=== PATIENT | male | born 1985 | race African-American/Black ===

== ENCOUNTER 2016-09-29 13:41 | Inpatient (IN) | payer OTHER ==
--- NOTE | 2016-09-29 14:19 | EDPHY ---
H & P Smoking Status: Never smoked Time Seen by Provider: 09/29/16 13:44 HPI/ROS: Chief complaint. People are following me HPI. Patient is a 31-year-old male who who presented to the police department today with complaint of people following him. He tells me this began several weeks ago and he was followed while he was in [place] and a stranger came up to him on the street and told him that the august since were interested in him and following him and wanted him to join the august since. The last several days the patient feels that he is being followed and apparently ended up yesterday in [place] and went to the police department after throwing away his cell phone. The [place] Police sent the patient to [facility] is the patient is a . They referred him back to [place]. Today again he was being followed and went to the police department here in [place] requesting protection. He was referred also to mental health and arrives in the emergency department with police and mental health. The patient tells me that he was popular among drug dealers 5 [address] [facility] and he feels that they may be still interested and after him. He denies any illness. ROS Constitutional. no fever/chills, no weakness Eyes. no problems with vision ENT. no sore throat, no nasal drainage Cardiovascular. no chest pain Respiratory. no shortness of breath, no cough Abdominal. no abdominal pain, no nausea/vomiting, no diarrhea . no problems urinating MS. no calf pain/swelling, no neck/back pain, no joint pain Skin. no rash Lymph. no swollen glands Neuro. no headache, no dizziness, no difficulty walking or with speech. Paranoid (Stevo Kincaid) Past Medical/Surgical History: Healthy (Stevo Kincaid) Social History: Single, nonsmoker, no alcohol (Stevo Kincaid) Physical Exam: General Appearance: Alert pleasant well-developed male no distress vital signs stable Eyes: Pupils equal and round no pallor or injection. ENT, Mouth: Mucous membranes are moist. Respiratory: There are no retractions, lungs are clear to auscultation. Cardiovascular: Regular rate and rhythm. Gastrointestinal: Abdomen is soft and nontender, no masses, bowel sounds normal. Neurological: Awake and alert, sensory and motor exams grossly normal. Skin: Warm and dry, no rashes. Musculoskeletal: Neck is supple nontender. Extremities symmetrical, full range of motion. Psychiatric: Patient is oriented X 3, there is no agitation. (Stevo Kincaid) Constitutional: Initial Vital Signs Temperature (C) 36.6 C 09/29/16 13:44 Heart Rate 72 09/29/16 13:44 Respiratory Rate 16 09/29/16 13:44 Blood Pressure 144/76 H 09/29/16 13:44 O2 Sat (%) 97 09/29/16 13:44 O2 Delivery Mode Room Air Allergies/Adverse Reactions: No Known Allergies Allergy (Unverified 09/29/16 14:04) Home Medications: Medication Instructions Recorded NK [No Known Home Meds] 09/29/16 Medical Decision Making Procedures: Patient's history is concerning for paranoid behavior. We have never seen the patient before and he is unknown to our mental health system. While certainly possible his story is true it is concerning for paranoid behavior. Patient agrees to psychiatric evaluation (Stevo Kincaid) ED Course/Re-evaluation: I reviewed the patient's labs. He is medically stable. We will have mental health evaluation Re-evaluation 9:00 p.m.. Patient is stable. He has been evaluated by mental health and they are looking for placement for this patient. Is on an M1 ( Stevo Kincaid) 0203AM: This patient has been accepted at [address] [place] [address] psychiatric facility. Emtala form has been filled out. Appropriate transfer will be arranged. Dr. Cunha has accepted. (Ashwin Dickinson) Differential Diagnosis: The patient has paranoid ideation. No evidence for drugs or alcohol. Medically stable. (Stevo Kincaid) Care Turn Over: Dr. Bradley at 9:00 p.m. (Stevo Kincaid) - Data Points Laboratory Results: Laboratory Results 09/29/16 14:30 09/29/16 14:30 09/29/16 09/29/16 09/29/16 14:35 14:30 14:30 WBC 3.74 10^3/uL L 10^3/uL (3.80-9.50) RBC 4.59 10^6/uL 10^6/uL (4.40-6.38) Hgb 15.1 g/dL g/dL (13.7-17.5) Hct 42.3 % % (40.0-51.0) MCV 92.2 fL fL (81.5-99.8) MCH 32.9 pg pg (27.9-34.1) MCHC 35.7 g/dL g/dL (32.4-36.7) RDW 11.9 % % (11.5-15.2) Plt Count 170 10^3/uL 10^3/uL (150-400) MPV 9.2 fL fL (8.7-11.7) Neut % (Auto) 44.1 % % (39.3-74.2) Lymph % (Auto) 45.5 % H % (15.0-45.0) Clarke % (Auto) 8.0 % % (4.5-13.0) Eos % (Auto) 1.6 % % (0.6-7.6) Baso % (Auto) 0.5 % % (0.3-1.7) Nucleat RBC Rel Count 0.0 % % (0.0-0.2) Absolute Neuts (auto) 1.65 10^3/uL L 10^3/uL (1.70-6.50) Absolute Lymphs (auto) 1.70 10^3/uL 10^3/uL (1.00-3.00) Absolute Monos (auto) 0.30 10^3/uL 10^3/uL (0.30-0.80) Absolute Eos (auto) 0.06 10^3/uL 10^3/uL (0.03-0.40) Absolute Basos (auto) 0.02 10^3/uL 10^3/uL (0.02-0.10) Absolute Nucleated RBC 0.00 10^3/uL 10^3/uL (0-0.01) Immature Gran % 0.3 % % (0.0-1.1) Immature Gran # 0.01 10^3/uL 10^3/uL (0.00-0.10) Sodium 139 mEq/L mEq/L (134-144) Potassium 4.4 mEq/L mEq/L (3.5-5.2) Chloride 106 mEq/L mEq/L (97-110) Carbon Dioxide 23 mEq/l mEq/l (22-31) Anion Gap 10 mEq/L mEq/L (8-16) BUN 17 mg/dL mg/dL (7-23) Creatinine 1.5 mg/dL H mg/dL (0.7-1.3) Estimated GFR 55 Glucose 84 mg/dL mg/dL (70-100) Calcium 10.2 mg/dL mg/dL (8.5-10.4) Salicylates < 1.0 mg/dL L mg/dL (2.0-20.0) Urine Opiates Screen NEGATIVE (NEGATIVE) Acetaminophen < 10 mcg/mL L mcg/mL (10.0-30.0) Urine Barbiturates NEGATIVE (NEGATIVE) Ur Phencyclidine Scrn NEGATIVE (NEGATIVE) Ur Amphetamine Screen NEGATIVE (NEGATIVE) U Benzodiazepines Scrn NEGATIVE (NEGATIVE) Urine Cocaine Screen NEGATIVE (NEGATIVE) U Marijuana (THC) Screen NEGATIVE (NEGATIVE) Ethyl Alcohol < 10 mg/dL mg/dL (0-10) Departure - Departure Disposition: [facility] IP Clinical Impression: Acute psychosis, Paranoia (psychosis) Condition: Fair Referrals: NONE *PRIMARY CARE P,. [Primary Care Provider] - As per Instructions
[2016-09-29 14:48] LABS: % IMMATURE GRANULYOCYTES 0.3 % (0.0-1.1); ABSOLUTE IMMATURE GRANULOCYTES 0.01 10^3/uL (0.00-0.10); ADD DIFF? NO; ADD MORPH? NO; ADD SCAN? NO; ATYPICAL LYMPHOCYTE FLAG 10 (0-99); FRAGMENT RBC FLAG 0 (0-99); HEMATOCRIT 42.3 % (40.0-51.0); HEMOGLOBIN 15.1 g/dL (13.7-17.5); LEFT SHIFT FLG 0 (0-99); LIPEMIA HEMOLYSIS FLAG 90 (0-99); MEAN CELL HEMOGLOBIN 32.9 pg (27.9-34.1); MEAN CELL HEMOGLOBIN CONCENTR. 35.7 g/dL (32.4-36.7); MEAN CELL VOLUME 92.2 fL (81.5-99.8); MEAN PLATELET VOLUME 9.2 fL (8.7-11.7); PLATELET CLUMPS FLAG 0 (0-99); PLATELET COUNT 170 10^3/uL (150-400); RED BLOOD CELL COUNT 4.59 10^6/uL (4.40-6.38); RED CELL DISTRIBUTION WIDTH 11.9 % (11.5-15.2)
[2016-09-29 14:56] LABS: ANION GAP 10 mEq/L (8-16); CALCIUM 10.2 mg/dL (8.5-10.4); CARBON DIOXIDE 23 mEq/l (22-31); CHLORIDE 106 mEq/L (97-110); CREATININE 1.5 mg/dL (0.7-1.3); ETHANOL SERUM < 10 mg/dL (0-10); GLOMERULAR FILTRATION RATE 55; GLUCOSE 84 mg/dL (70-100); POTASSIUM 4.4 mEq/L (3.5-5.2); SALICYLATE < 1.0 mg/dL (2.0-20.0); SODIUM 139 mEq/L (134-144)
[2016-09-30] MEDS ORDERED: ACETAMINOPHEN 325 MG TAB PO PRN (04:28)
[2016-09-30] MEDS ORDERED: NICOTINE POLACRILEX 2 MG GUM B PRN (04:30)
[2016-09-30] MEDS ORDERED: LORazepam 0.5 MG TAB PO PRN (04:31)
[2016-09-30] MEDS ORDERED: OLANZapine 10 MG TAB PO PRN (04:33)
[2016-09-30] MEDS ORDERED: MAG HYDROX/AL HYDROX/SIMETH 30 ML UDCUP PO PRN (04:33)
--- NOTE | 2016-09-30 08:35 | PDGENHP ---
History and Physical History and Physical: HISTORY AND PHYSICAL CC: Admitted to Behavioral Health Unit with symptoms of acute psychosis, I am asked to see the patient by Dr. Cunha HISTORY: This patient was having symptoms of delusions, with significant paranoia and took himself to the police department from where he was transferred to the ER. He is now admitted to the Behavioral Health Unit. It sounds like he has had similar symptoms in the past but I am unable to get him described history clearly. He has no physical complaints at all at this time and denies any significant medical concerns or issues. ROS: A comprehensive 10 system review revealed no other significant findings PAST MEDICAL HISTORY: Quite healthy overall with no surgeries no medication FAMILY MEDICAL HISTORY: He is not aware of any specific medical illnesses in his family SOCIAL HISTORY: No tobacco, drugs, alcohol MEDICATIONS: None PHYSICAL EXAMINATION: Vital Signs: Normal without fever Examination: General: alert, oriented, good mentation, relaxed Skin: warm, dry, good color, no rash HEENT: normal Neck: no mass or jvd Resps: relaxed Lungs: clear breath sounds Heart: regular, no murmur Abdomen: soft, nondistended, nontender, +BS, no mass Upper Extremities: normal Lower Extremities: no edema, warm No Bleeding or bruising Neurologic: normal speech/language, 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
[2016-09-30] MEDS: MAGNESIUM HYDROXIDE 30 ML UDCUP PO SCH (11:24)
[2016-09-30] MEDS ORDERED: hydrOXYzine HCL 25 MG TAB PO PRN (18:26)
[2016-09-30] MEDS: ARIPiprazole 2 MG TAB PO SCH (20:36)
[2016-10-01] MEDS: MAGNESIUM HYDROXIDE 30 ML UDCUP PO SCH (10:26)
--- NOTE | 2016-10-01 19:59 | SOAPPROG ---
SOAP Progress Note Assessment/Plan: Late Entry: Assessment: 31yo AAM with reported hx of PTSD and "100% service connected for delusions" admitted on M1 after travelling several different places feeling followed, leaving car, throwing away phone b/c paranoia. Interviewed at length, denied SI/HI or AH/VH. vague with goals for hospitalization, and doesn't believe he needs meds, but did agree to trial of Abilify 2mg HS. Continue on M1. Safety precautions. Admission dictation to follow. Objective: Vital Signs Temp Pulse Resp BP Pulse Ox 36.9 C 47 L 18 128/56 H 96 10/01/16 06:00 10/01/16 06:00 10/01/16 06:00 10/01/16 06:00 10/01/16 06:00 - Time Spent With Patient Time Spent With Patient: 60min - Pending Discharge Pending Discharge Within 24 Hours: No Pending Discharge Within 48 Hours: No ICD10 Worksheet Patient Problems: Problems Problem Status Onset Acute psychosis Acute Paranoia (psychosis) Acute
--- NOTE | 2016-10-01 20:12 | SOAPPROG ---
SOAP Progress Note Assessment/Plan: Late Entry for 09/30/16: Assessment: 31yo AAM with reported hx of PTSD and "100% service connected for delusions" admitted on M1 after travelling several different places feeling followed, leaving car, throwing away phone b/c paranoia. Interviewed at length, denied SI/HI or AH/VH. vague with goals for hospitalization, and doesn't believe he needs meds, but did agree to trial of Abilify 2mg HS. Continue on M1. Safety precautions. Admission dictation to follow. 10/01/16 20:41 per staff, pt slept 8hr. guarded. of note, at end of admission interview yesterday, when asked if he had any questions, pt asked "would you like to get a coffee with me sometime?" on interview, pt states he bas been eating and sleeping better than he had been in past 2 weeks. when asked how in [place] from [place], "my roommate drove me here" (but pt was brought in by police on M1). states he feels a little uncomfortable and a little paranoid in the hospital. Regarding Abilify 2mg dose, he states "I had a weird night, my mind was racing when I woke up and I could barely speak". admits his complaint about medication is in part b/c he just doesn't think he needs any. Was willing to take again tonight and see if it helps with paranoid thoughts. Goals for hospitalization: "trying to work through was I was feeling and communicating with people". MSE: cooperative, good eye contact, mood "bored", affect constricted, thoughts vague,circumferential,guarded, reports some paranoia but unable to be more specific, denied SI/HI or AH/VH. PLAN: Abilify 2mg qhs. low dose to avoid s/e and have pt completely dismiss meds. discussed benefits and s/e. pt concerned about his appearance/weight. Need collateral from [facility] tomorrow AM, and family (aunt, mother) if pt allows, also perhaps therapist. cont on M1. may need STC. Objective: Vital Signs Temp Pulse Resp BP Pulse Ox 36.9 C 47 L 18 128/56 H 96 10/01/16 06:00 10/01/16 06:00 10/01/16 06:00 10/01/16 06:00 10/01/16 06:00 - Time Spent With Patient Time Spent With Patient: 35min - Pending Discharge Pending Discharge Within 24 Hours: No Pending Discharge Within 48 Hours: No ICD10 Worksheet Patient Problems: Problems Problem Status Onset Acute psychosis Acute Paranoia (psychosis) Acute
[2016-10-01] MEDS: ARIPiprazole 2 MG TAB PO SCH (21:06)
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
[2016-10-02] MEDS: MAGNESIUM HYDROXIDE 30 ML UDCUP PO SCH (09:09)
--- NOTE | 2016-10-02 17:32 | SOAPPROG ---
[facility] Progress Note Assessment/Plan: Assessment: Plan: 10/02/16 17:32 Remains disorganized, irrational. Agrees to voluntary hospitalization. Will increase Abilify to 5mg, monitor. Subjective: Pt seen, discussed with staff. Reports feeling "much better." He told RN that he still felt paranoid. He tells me that he is "more comfortable." Becomes less organized as conversation progresses. Focused on where he will go after d/ c. He struggles to identify a coherent plan. States he may "return to my home in [place]" or "get on that bus and disappear." Objective: Vital Signs Temp Pulse Resp BP Pulse Ox 36.5 C 52 L 14 126/63 H 98 10/02/16 06:00 10/02/16 06:00 10/02/16 06:00 10/02/16 06:00 10/02/16 06:00 - Time Spent With Patient Time Spent With Patient: 25" ICD10 Worksheet Patient Problems: Problems Problem Status Onset Acute psychosis Acute Paranoia (psychosis) Acute
[2016-10-02] MEDS ORDERED: ARIPiprazole 2 MG TAB PO SCH (17:33)
[2016-10-02] MEDS: ARIPiprazole 5 MG TAB PO SCH (20:48)
[2016-10-03] MEDS: MAGNESIUM HYDROXIDE 30 ML UDCUP PO SCH (08:22)
--- NOTE | 2016-10-03 17:20 | SOAPPROG ---
SOAP Progress Note Assessment/Plan: Assessment: Plan: 10/02/16 17:32 Remains disorganized, irrational. Agrees to voluntary hospitalization. Will increase Abilify to 5mg, monitor. 10/03/16 17:20 Some improvement today. CCM. Subjective: Pt seen, discussed with staff. Reports feeling "real good." We discussed his treatment and d/c plans at length. He continues to debate his next step with a wide range of options. States he is going to move out of his house in [facility]. Unsure if he is going to stay in [place] or move to [place] or the [facility]. Remains somewhat tangential, though in good behavioral control. Objective: Vital Signs Temp Pulse Resp BP Pulse Ox 36.7 C 43 L 14 121/63 H 99 10/03/16 06:00 10/03/16 06:00 10/03/16 06:00 10/03/16 06:00 10/03/16 06:00 MSE: Calm, coop. Affect is slightly constricted, stable, approp. Mood is "better." TP is tangential at times, struggles to stay on topic of conversation. TC reveals some ongoing paranoia, some internal focus. - Time Spent With Patient Time Spent With Patient: 25" - Pending Discharge Pending Discharge Within 24 Hours: No Pending Discharge Within 48 Hours: No ICD10 Worksheet Patient Problems: Problems Problem Status Onset Acute psychosis Acute Paranoia (psychosis) Acute
[2016-10-03] MEDS: ARIPiprazole 5 MG TAB PO SCH (20:53)
[2016-10-04 07:01] VITALS: BP 119/59; PULSE 56; RESP 15; TEMP 97.9; O2SAT 98
[2016-10-04] MEDS: MAGNESIUM HYDROXIDE 30 ML UDCUP PO SCH (09:08)
[2016-10-04] MEDS ORDERED: MAGNESIUM HYDROXIDE 30 ML UDCUP PO PRN (12:00)
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
== END 2016-10-04 13:05 | disposition home or self-care (01) | DRG 885 ==
LOC: BBEH 09-30 02:50
PROVIDERS: ADMIT Psychiatry & Neurology Behavioral Neurology & Neuropsychiatry; ATTEND Psychiatry & Neurology Behavioral Neurology & Neuropsychiatry
DX: F31.2 Bipolar disorder, current episode manic severe with psychotic features (principal)
CPT/HCPCS: 80305; G0480